=== PATIENT | male | born 1955 | race Caucasian/White ===

== ENCOUNTER 2017-09-14 09:03 | Emergency (ER) | payer OTHER ==
[~2017-09-14] VITALS: Ht 172.7 cm; Wt 60.7 kg
[~2017-09-14 09:03] MED LIST: ERYT1OIN6 LEFT EYE
[2017-09-14 09:07] VITALS: Ht 172.7 cm; Wt 60.7 kg
[2017-09-14 09:58] LABS: BASOPHILS % 0.7 % (0.0-2.0); EOSINOPHILS % 0.3 % (0.0-7.0); HEMATOCRIT 46.7 % (42.0-52.0); HEMOGLOBIN 16.4 g/dl (14.0-18.0); LYMPHOCYTES # 1.5 10^3/ul (0.8-2.9); LYMPHOCYTES % 24.4 % (15.0-51.0); MEAN CORPUSCULAR HGB CONC 35.1 g/dl (32.0-37.0); MEAN CORPUSCULAR VOLUME 91.2 fl (82.0-101.0); MEAN PLATELET VOLUME 9.3 fl (7.4-10.4); MONOCYTE # 0.6 10^3/ul (0.3-0.9); NEUTROPHIL # 3.8 10^3/ul (1.6-7.5); NEUTROPHILS % 64.3 % (39.0-77.0); PLATELET COUNT 270 10^3/UL (140-415); RED BLOOD COUNT 5.12 10^6/ul (4.70-6.10); RED CELL DISTRIBUTION WIDTH 11.8 % (11.5-14.5)
--- NOTE | 2017-09-14 10:07 | RADRPT ---
PROCEDURE: US left lower extremity veins. CLINICAL INDICATION: Left leg pain and swelling. TECHNIQUE: Multiple longitudinal and transverse images of the left lower extremity veins were obta ined with good scale and color Doppler imaging. The common femoral vein, femoral vein, and popliteal vein were evaluated. 2D grayscale measurements with compression sonography, pulsed Doppler, color D oppler, and pulsed Doppler with augmentation. COMPARISON: No prior studies are available for comparison. FINDINGS: The left common femoral, femoral and popliteal veins are normally compressible throughout. Color fl ow demonstrates normal filling of the vessels. Normal waveforms are visualized and there is normal response to augmentation. IMPRESSION: 1. No evidence of deep vein thrombosis involving the left lower extremity. RPTAT: QQ .Jhony Henry MD, MD Date Time Electronically viewed and signed by .Jhony Henry MD, on 09/14/2017 10:07 .R/
--- NOTE | 2017-09-14 10:08 | RADRPT ---
PROCEDURE: XR Chest. CLINICAL INDICATION: Chest pain. TECHNIQUE: Single frontal view. COMPARISON: No prior study is available for comparison. FINDINGS: The lungs are clear. The heart size is normal. There is calcification in the aorta consistent with atherosclerosis. There is no pleural effusion. There is no pneumothorax. IMPRESSION: 1. Atherosclerosis. 2. Otherwise normal chest x-ray. RPTAT: QQ .Jhony Henry MD, MD Date Time Electronically viewed and signed by .Jhony Henry MD, MD on 09/14/2017 10:07 .R/
[2017-09-14 10:14] LABS: ALANINE AMINOTRANSFERASE 29 IU/L (13-69); ALBUMIN 4.5 g/dl (3.3-4.9); ALBUMIN/GLOBULIN RATIO 1.04; ALKALINE PHOSPHATASE 70 IU/L (42-121); ANION GAP 12 (8-16); ASPARTATE AMINO TRANSFERASE 30 IU/L (15-46); BILIRUBIN,INDIRECT 0.3 mg/dl (0-1.1); BILIRUBIN,TOTAL 0.3 mg/dl (0.2-1.3); BLOOD UREA NITROGEN 5 mg/dl (7-20); CALCIUM 9.5 mg/dl (8.4-10.2); CARBON DIOXIDE 31 mmol/L (21-31); CHLORIDE 97 mmol/L (97-110); CREATININE 0.78 mg/dl (0.61-1.24); GLUCOSE 102 mg/dl (70-220); POTASSIUM 3.8 mmol/L (3.5-5.1); SODIUM 136 mmol/L (135-144); TOTAL PROTEIN 8.8 g/dl (6.1-8.1)
[2017-09-14 10:48] LABS: TROPONIN-I < 0.012 ng/ml (0.00-0.12)
[2017-09-14] MEDS ORDERED: MULTIVITAMINS THERAPEUTIC TAB PO SCH (11:00)
[2017-09-14] MEDS ORDERED: MULTI PO (11:05)
--- NOTE | 2017-09-14 11:05 | ERD ---
ER Documentation Chief Complaint Chief Complaint left leg numbness x 4 days HPI This is a 62-year-old male with history of hypertension, previous CVA, chronic alcoholism who presents to the emergency room for evaluation of left lower extremity weakness. The patient states that his symptoms have been present for 4 days. He states that lower leg feels slightly weaker than the right. Denies any trauma, denies any numbness or tingling in the extremity and came to the emergency room for evaluation. The patient is here with his family members who state that they were concerned and wanted to get his leg checked out. The patient continues to drink every day and denies any aggravating or relieving factors for her symptoms ROS All systems reviewed and are negative except as per history of present illness. Medications Home Meds Discontinued Scripts Erythromycin (Erythromycin Opth) 3.5 Gm Oint..gm., 1 APPLIC LEFT EYE QID for 12 Days, EA Prov:SAAD BARRETT PA-C 11/22/15 Allergies Allergies: Coded Allergies: No Known Allergy (Unverified , 11/22/15) PMhx/Soc Medical and Surgical Hx: pt denies Medical Hx Hx Alcohol Use: No Hx Substance Use: No Hx Tobacco Use: No Smoking Status: Never smoker Physical Exam Vitals Vital Signs Date Time Temp Pulse Resp B/P Pulse Ox O2 Delivery O2 Flow Rate FiO2 09/14/17 09:50 73 20 189/100 99 Room Air 09/14/17 09:38 Nasal Cannula 2 09/14/17 09:07 98.2 78 18 191/97 99 Physical Exam INITIAL VITAL SIGNS: Reviewed by me GENERAL: The patient is well developed and appropriate for usual state of health in no apparent distress HEENT: Pupils equal, round, and reactive to light. EOMI. There is no scleral icterus. NECK: C-spine is soft and supple, there is no meningismus. There is no cervical lymphadenopathy. LUNGS: Clear to auscultation bilaterally. There are no rales, wheezes or rhonchi. HEART: Regular rate and rhythm, no murmurs, clicks, rubs or gallops. ABDOMEN: Soft, non-tender, non-distended. There are bowel sounds in all four quadrants. No rebound or guarding. EXTREMITIES: There is no peripheral cyanosis or edema. No focal swelling or erythema. NEUROLOGICAL: The patient moves all four extremities with 5/5 strength. Cranial nerves II - XII are intact. Normal gait. Alert and oriented person place and time, reflexes intact and symmetric bilaterally, normal gait SKIN: There is no apparent rash or petechiae. HEME/LYMPHATIC: There is no evidence of excessive bruising or lymphedema. PSYCHIATRIC: The patient does not appear anxious or depressed. Result Diagram: 09/14/17 0945 09/14/17 0945 Results 24 hrs Laboratory Tests Test 09/14/17 09:45 White Blood Count 6.010^3/ul Red Blood Count 5.1210^6/ul Hemoglobin 16.4g/dl Hematocrit 46.7% Mean Corpuscular Volume 91.2fl Mean Corpuscular Hemoglobin 32.0pg Mean Corpuscular Hemoglobin Concent 35.1g/dl Red Cell Distribution Width 11.8% Platelet Count 51302^3/UL Mean Platelet Volume 9.3fl Neutrophils % 64.3% Lymphocytes % 24.4% Monocytes % 10.0% Eosinophils % 0.3% Basophils % 0.7% Nucleated Red Blood Cells % 0.0/100WBC Neutrophils # 3.810^3/ul Lymphocytes # 1.510^3/ul Monocytes # 0.610^3/ul Eosinophils # 0.010^3/ul Basophils # 0.010^3/ul Nucleated Red Blood Cells # 0.010^3/ul Sodium Level 136mmol/L Potassium Level 3.8mmol/L Chloride Level 97mmol/L Carbon Dioxide Level 31mmol/L Anion Gap 12 Blood Urea Nitrogen 5mg/dl Creatinine 0.78mg/dl Glucose Level 102mg/dl Calcium Level 9.5mg/dl Total Bilirubin 0.3mg/dl Direct Bilirubin 0.00mg/dl Indirect Bilirubin 0.3mg/dl Aspartate Amino Transf (AST/SGOT) 30IU/L Alanine Aminotransferase (ALT/SGPT) 29IU/L Alkaline Phosphatase 70IU/L Troponin I < 0.012ng/ml Total Protein 8.8g/dl Albumin 4.5g/dl Globulin 4.30g/dl Albumin/Globulin Ratio 1.04 Current Medications Medications (Trade) Dose Ordered Sig/Emelina Route PRN Reason Start Time Stop Time Status Last Admin Dose Admin Multivitamins Therapeutic (Theragran) 1 tab ONCE PO 09/14/17 11:00 Procedures/MDM EKG: Rate/Rhythm: [Normal Sinus Rhythm] QRS, ST, T-waves: [No changes consistent w/ acute ischemia] Impression: [No evidence of ischemia or arrhythmia] Chest X-ray 1V Interpreted by me: Soft Tissue: No acute abnormalities Bones: No acute abnormalities Mediastinum/Cardiac Silhouette/Lungs: [No acute abnormalities] This 62-year-old male presents to the emergency room for evaluation of left lower extremity weakness. This patient had no focal neurological deficits on my examination, he is ambulating in the emergency room without difficulty, his reflexes are intact and symmetric bilaterally. The patient has sensation is intact in the left lower extremity. The patient does drink alcohol every day and lab work was obtained to rule out any electrolyte abnormality. His lab work is within normal limits at this time and I do feel that this patient could be suffering from neuropathy secondary to chronic alcohol use. He was given a multivitamin in the emergency room. I do not feel this patient is suffering from an acute stroke given this patient's symptoms and nonfocal findings. The patient was instructed to follow-up with his primary care physician as an outpatient was instructed to discontinue use of alcohol. The patient verbalized understanding. His family members are in the room also verbalized understanding Departure Diagnosis: Primary Impression: Lower extremity weakness Additional Impressions: Chronic alcohol use Neuropathy Condition: Stable KRISTEN AGUIRRE DO Sep 14, 2017 11:05
[2017-09-14 11:42] VITALS: BP 160/90; PULSE 76; RESP 18
== END 2017-09-14 11:53 | disposition home or self-care (01) ==
LOC: E/R 09:03
DX: R53.1 Weakness (principal); F10.99 Alcohol use, unspecified with unspecified alcohol-induced disorder; G62.9 Polyneuropathy, unspecified; I10 Essential (primary) hypertension
CPT/HCPCS: 36415; 71010; 80053; 84484; 85025; 93005; 93971; Z7502; Z7610

== ENCOUNTER 2017-09-26 14:33 | Emergency (ER) | payer OTHER ==
[~2017-09-26] VITALS: Ht 167.6 cm; Wt 54.5 kg
[~2017-09-26 14:33] MED LIST changes: -ERYT1OIN6 LEFT EYE; +MULTI PO
[2017-09-26 14:36] VITALS: Ht 167.6 cm; Wt 54.5 kg
--- NOTE | 2017-09-26 14:57 | ERD ---
ER Documentation Chief Complaint Chief Complaint ongoing left side weakness, fall 2 days ago, cva 12yrs ago, left knee pain HPI Patient is a 62-year-old male who presents with pain to his left knee that was sudden in onset after a mechanical fall 5 days ago. The patient states that he was on a counter painting and lost his balance and landed on his left knee. He has not sought care since that time. Today he lost balance twice and fell again on his left knee. His daughter states that he has been complaining of left arm and leg numbness and intermittent loss of balance for the last month and a half. The patient states that he has numbness only over his left pinky and ring finger at this time. He denies left-sided weakness. There is no report of speech change. He denies head trauma or neck pain. The patient had a recent change of primary physician and has an appointment on October 01. ROS All systems reviewed and are negative except as per history of present illness. Medications Home Meds Active Scripts Amlodipine Besylate* (Norvasc*) 5 Mg Tablet, 5 MG PO DAILY, #30 TAB Prov:AARON DWYER MD 09/26/17 Multivitamins* (Theragran*) 1 Tab Tab, 1 TAB PO DAILY for 30 Days, TAB Prov:KRISTEN AGUIRRE DO 09/14/17 Allergies Allergies: Coded Allergies: No Known Allergy (Unverified , 09/26/17) PMhx/Soc Past medical history: Hemorrhagic CVA Past surgical history: Aneurysm coiling Social history: Alcoholism, last drink 2 weeks ago, denies tobacco or other drugs Hx Alcohol Use: No Hx Substance Use: No Hx Tobacco Use: No FmHx Family History: No coronary disease, No diabetes Physical Exam Vitals Vital Signs Date Time Temp Pulse Resp B/P Pulse Ox O2 Delivery O2 Flow Rate FiO2 09/26/17 20:04 67 24 161/98 99 Room Air 09/26/17 14:36 97.9 81 18 191/87 98 Physical Exam Const: Alert, no acute distress Head: Atraumatic Eyes: Normal Conjunctiva, No pallor, no icterus ENT: Normal External Ears, Nose and Mouth. Mucous membranes moist Neck: Full range of motion..~ No meningismus. No midline tenderness Resp: Clear to auscultation bilaterally, No wheezes, no rales Cardio: Regular rate and rhythm, no murmurs Abd: Soft, non tender, non distended. Skin: No petechiae or rashes Back: No midline or flank tenderness Ext: No cyanosis, or edema. Mild effusion to left knee. No bony tenderness. No ligamentous laxity. 2+ DP pulses bilaterally. Neur: Awake and alert, Cranial nerves II through XII intact bilaterally, strength and sensation full in 4 extremities except for subjective diminished sensation to the left pinky and ring finger. Negative Babinski sign. No pronator drift. No dysmetria. Normal gait. Psych: Normal Mood and Affect Procedures/MDM A chest x-ray was performed in error. Chest x-ray was not indicated and was not ordered by me. The order states an indication of chest pain, but the patient does not have chest pain. MDM: Patient is a 62-year-old male who presents to the ER with mechanical fall and contusion to the right knee. An x-ray of the knee shows no significant injury. Extensor mechanism is intact. The patient's children state that he has had intermittent loss of balance resulting in falls over the last month and a half. They also state that he is complained of numbness in the left arm and left leg during this time. The patient states that he has intact sensation in his left arm and leg, and on direct confrontation, there is numbness only in the pinky. This may be suggestive of radiculopathy. There is no motor weakness , and the patient has normal gait. He has no other neurological deficit. The patient has remote history of CVA, and CT of the head shows multiple old small vessel strokes. These do not appear acute or subacute. There is no intracranial hemorrhage. Given the patient's normal neurological exam in the ER and chronicity of symptoms, I do not believe that further CVA workup is indicated at this time. I did advise the patient of the need to follow-up with his PMD and to see a neurologist if his symptoms persist. Patient has history of alcohol abuse, and I can ask for the possibility of a metabolic neurological condition. Advised the patient and his children on strict return precautions in case of any acute neurological symptoms. Advised patient to take caution and ambulating. The patient ambulated with a normal and steady gait in the ER. Patient was noted to have an elevated blood pressure, and the patient's children report that he has frequently had elevated blood pressures. I will therefore start him on amlodipine, and have advised him of the need to follow- up with his PMD for further blood pressure recheck and titration of medication. Departure Diagnosis: Primary Impression: Knee contusion Encounter type: initial encounter Laterality: left Qualified Code: S80.02XA - Contusion of left knee, initial encounter Additional Impressions: Loss of balance Elevated blood pressure reading Condition: AARON Renae MD Sep 26, 2017 14:57
--- NOTE | 2017-09-26 15:41 | RADRPT ---
PROCEDURE: XR Chest. CLINICAL INDICATION: Chest pain TECHNIQUE: AP view of the chest was performed. COMPARISON: 09/14/2017 FINDINGS: The lungs are clear. The lung volumes are normal. The heart size is normal. The osseous structure s are intact. Aortic atherosclerotic calcifications are present IMPRESSION: Negative examination. Aortic atherosclerosis is present. RPTAT: QQ .Regine Tate MD, Date Time Electronically viewed and signed by .Regine Tate MD, MD on 09/26/2017 15:41 .M/
--- NOTE | 2017-09-26 16:05 | RADRPT ---
PROCEDURE: CT Brain without contrast. CLINICAL INDICATION: Left-sided weakness. Fall. TECHNIQUE: A multiplanar CT of the brain was performed on a CT scanner utilizing axial imaging fro m the skull base through the vertex without IV contrast. The CTDIvol is 41.74 mGy and the DLP is 72 0.23 mGycm. One or more of the following dose reduction techniques were utilized: Automated exposu re control, adjustment of the mA and/or kV according to patient size, use of iterative reconstructio n technique. DICOM images are available. COMPARISON: None FINDINGS: No evidence of intracranial hemorrhage or abnormal extra-axial fluid collection. Aneurysm coils at t he level of the left distal internal carotid bifurcation with surrounding beam hardening and streak artifact. Multiple discrete hypodense foci in the left darling radiata, right caudate head, external capsule, b rolando ganglia and right centrum semiovale compatible with remote lacunar infarcts. Patchy chronic cyndy rovascular ischemic changes of the deep white matter compatible with chronic microvascular ischemic disease. The ventricles and subarachnoid spaces are mildly prominent compatible with age-related vol ume loss. Atherosclerotic calcification of the cavernous internal carotid arteries and right vertebral artery. Right lateral orbital wall fracture repair at the level of the zygomaticofrontal articulation. The basal cisterns, posterior fossa contents, brainstem, craniocervical junction, orbits, pituitary axis, paranasal sinuses, mastoid air cells, and calvarium are unremarkable. IMPRESSION: 1. No intracranial hemorrhage or abnormal extra-axial collection. No edema, mass effect, or shift. 2. Moderate chronic microvascular ischemic changes and multiple remote bilateral lacunar infarcts a s detailed above. Mild to moderate atrophy. MRI may be considered for further evaluation as clinical ly warranted . 3. Aneurysm coil with surrounding artifact at the level of the distal left intracranial internal ca rotid artery bifurcation. RPTAT:AAJJ Physician Mine Date Time Electronically viewed and signed by Physician Mine on 09/26/2017 16:05 PILO/
--- NOTE | 2017-09-26 19:59 | RADRPT ---
PROCEDURE: X-ray left knee. CLINICAL INDICATION: Trauma to the left knee with soft tissue swelling. TECHNIQUE: 2 views left knee. COMPARISON: Today, about 3-1/2 hours ago. 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 Soft tissue swelling over the anterior superior knee, similar in appe arance to prior examination. No evident acute fracture. IMPRESSION: No evident acute fracture, with persistent superior and a soft tissue swelling. RPTAT: [facility] Physician Wenceslao Date Time Electronically viewed and signed by Physician Wenceslao on 09/26/2017 19:59 RS/
[2017-09-26] MEDS ORDERED: AMLO5TAB4 PO (20:03)
[2017-09-26 20:04] VITALS: BP 161/98; PULSE 67; RESP 24
== END 2017-09-26 20:30 | disposition home or self-care (01) ==
LOC: E/R 14:33
DX: S80.02XA Contusion of left knee, initial encounter (principal); R26.89 Other abnormalities of gait and mobility; R03.0 Elevated blood-pressure reading, without diagnosis of hypertension; W18.39XA Other fall on same level, initial encounter; Y92.9 Unspecified place or not applicable
CPT/HCPCS: 70450; 73562; Z7502; 71010